=== PATIENT | male | born 1990 | race African-American/Black ===

== ENCOUNTER 2017-11-11 10:28 | Observation (INO) | payer SELFPAY ==
[2017-11-11] MEDS ORDERED: Morphine 2 MG/ML SYRINGE ONE (11:16)
--- NOTE | 2017-11-11 11:50 | RAD ---
LEFT ANKLE 3 VIEWS: Date: 11/11/17 HISTORY: Left ankle pain and deformity. FINDINGS: There is disruption of the ankle mortise with dislocation at the talocrural joint. There are fracture s involving the distal tibia and fibula. The talus is posteriorly dislocated in relation to the dista l tibia. IMPRESSION: Fracture-dislocation of the left ankle. POS: CADENCE
[2017-11-11] MEDS ORDERED: Morphine 4 MG/ML VIAL ONE (12:00)
[2017-11-11] MEDS ORDERED: CEFAZOLIN/Water 2 GM/20 ML SYRINGE SLOW IVP SCH (12:30)
[2017-11-11 13:08] LABS: #Basophils 0.1 thou/uL (0.0-0.2); #Eosinphils 0.1 thou/uL (0.0-0.7); #Monocytes 0.5 thou/uL (0.11-0.59); #Neutrophils 6.4 thou/uL (1.40-6.50); %Basophils 0.8 % (0.0-1.0); %Eosinophils 1.3 % (0.0-10.0); %Lymphocytes 12.7 % (21.0-51.0); %Monocytes 5.9 % (0.0-10.0); %Neutrophils 79.3 % (42.0-75.0); Hemoglobin 15.1 g/dL (14.0-18.0); Mean Corpuscular HGB CONC 32.4 g/dL (32.0-36.0); Mean Corpuscular Hemoglobin 27.2 pg (27.0-31.0); Mean Corpuscular Volume 83.9 fL (78.0-98.0); Platelet Count 111 thou/uL (130-400); RBC Distribution Width 11.9 % (11.5-14.5); Red Blood Cell (RBC) Count 5.56 mill/uL (4.70-6.10)
[2017-11-11 13:17] LABS: ALT (SGPT) 14 U/L (8-55); AST (SGOT) 15 U/L (5-34); Albumin 4.5 g/dL (3.5-5.0); Alkaline Phosphatase 75 U/L (40-150); Anion Gap 10 mmol/L (10-20); BUN (Urea Nitrogen) 10 mg/dL (8.9-20.6); Bilirubin, Total 0.6 mg/dL (0.2-1.2); Calc. Creatinine Clearance 0 mL/min (70-130); Calcium 9.8 mg/dL (7.8-10.44); Carbon Dioxide 26 mmol/L (22-29); Chloride 105 mmol/L (98-107); Estimated GFR-MDRD Greater than 90; Glucose 119 mg/dL (70-105); Potassium 3.9 mmol/L (3.5-5.1); Protein, Total 7.5 g/dL (6.0-8.3); Sodium 137 mmol/L (136-145)
[2017-11-11] MEDS ORDERED: Ondansetron HCl/PF 4 MG/2 ML Vial IVP PRN (13:21)
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
[2017-11-11] MEDS ORDERED: Acetaminophen 1,000 MG in Premix Bag 1 BAG IVPB PRN (13:23)
--- NOTE | 2017-11-11 13:41 | RAD ---
LEFT ANKLE THREE VIEWS: History: Deformity, fracture/dislocation reduction . FINDINGS/IMPRESSION: Interval reduction of the fracture-dislocation is seen since earlier exam of 10:45 a.m. from the same date. Anatomic alignment has been restored. A cast has been placed. POS: NEMESIO
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
[2017-11-11 16:20] VITALS: BMI 25.2
[2017-11-11] MEDS: Sodium Chloride 0.9% 1,000 ML IV SCH (17:57)
[2017-11-12] MEDS: Ketorolac Tromethamine 30 MG/ML VIAL IVP PRN ×2 (02:43→08:45)
[2017-11-12] MEDS: Sodium Chloride 0.9% 1,000 ML IV SCH ×4 (02:45→23:48)
[2017-11-12] MEDS ORDERED: Ropivacaine 0.5% HCl/PF (150 MG/30 ML VIAL) ONE (11:54)
[2017-11-12] MEDS ORDERED: Ropivacaine 0.2% HCl/PF (40 MG/20 ML VIAL) ONE (11:54)
[2017-11-12] MEDS ORDERED: Bupivacaine HCl 0.5%/Epinephrine 1:200,000/PF 30 ml Vial ONE (11:54)
[2017-11-12] MEDS ORDERED: Ketorolac Tromethamine 30 MG/ML VIAL ONE (13:38)
[2017-11-12] MEDS ORDERED: Lidocaine 1% PF 5 ML VIAL ONE (13:38)
[2017-11-12] MEDS ORDERED: Ondansetron HCl/PF 4 MG/2 ML Vial ONE (13:38)
[2017-11-12] MEDS ORDERED: PROPOFOL 200 MG/20 ML VIAL ONE (13:38)
[2017-11-12] MEDS ORDERED: CEFAZOLIN/Water 2 GM/20 ML SYRINGE ONE (14:01)
[2017-11-12] MEDS ORDERED: Midazolam HCl 2 mg/2 ml Vial ONE (14:06)
[2017-11-12] MEDS ORDERED: Fentanyl 100 MCG/2 ML VIAL ONE ×4 (14:06→16:08)
[2017-11-12] MEDS ORDERED: Dexamethasone 4 mg/ml Vial ONE (14:08)
[2017-11-12] MEDS ORDERED: Ropivacaine 0.2% 550 ML 550 ML NERVE BLCK SCH (14:42)
[2017-11-12] MEDS ORDERED: Zolpidem Tartrate 5 MG TAB PO PRN (14:42)
[2017-11-12] MEDS ORDERED: Ketorolac Tromethamine 30 MG/ML VIAL IVP PRN (14:42)
[2017-11-12] MEDS ORDERED: Ondansetron HCl/PF 4 MG/2 ML Vial IVP PRN ×2 (14:42→16:49)
[2017-11-12] MEDS ORDERED: Promethazine HCl 25 MG/ML VIAL IM PRN ×2 (14:42→16:49)
[2017-11-12] MEDS ORDERED: traMADol HCl 50 MG TAB PO PRN ×2 (14:42)
[2017-11-12] MEDS ORDERED: Fentanyl 100 MCG/2 ML VIAL IV PRN (14:43)
[2017-11-12] MEDS ORDERED: HYDROcodone/Acetaminophen 7.5/325 mg Tablet PO PRN ×2 (14:44)
[2017-11-12] MEDS ORDERED: Midazolam HCl 5 mg/5 ml Vial ONE (16:09)
[2017-11-12] MEDS ORDERED: Morphine Sulfate 2 MG/ML SYRINGE SLOW IVP PRN (16:49)
[2017-11-12] MEDS ORDERED: Meperidine HCl/PF 25 MG/ML VIAL SLOW IVP PRN (16:49)
[2017-11-12] MEDS ORDERED: Promethazine HCl 25 MG/ML VIAL SLOW IVP PRN (16:49)
[2017-11-12] MEDS ORDERED: HYDROmorphone 2 MG/ML VIAL SLOW IVP PRN (16:49)
--- NOTE | 2017-11-12 18:21 | RAD ---
LEFT ANKLE RADIOGRAPHS 3 VIEWS: DATE: 11/12/17. PROVIDED CLINICAL HISTORY: Fracture. FINDINGS: Spot fluoroscopic frontal and lateral images of the left ankle demonstrate interval lateral side plat e and screw fixation of the distal fibular fracture with resultant improved alignment. IMPRESSION: As above. POS: NEMESIO
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
[2017-11-13 03:49] VITALS: BP 132/80; TEMP 98.3
[2017-11-13] MEDS ORDERED: HYDROcodone/Acetaminophen 7.5/325 mg Tablet PO PRN (06:07)
[2017-11-13] MEDS ORDERED: Acetaminophen 500 MG TAB PO SCH (06:15)
[2017-11-13] MEDS ORDERED: traMADol HCl 50 MG TAB PO SCH (08:00)
[2017-11-13] MEDS ORDERED: Ibuprofen 800 MG TAB PO SCH (09:00)
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
== END 2017-11-13 06:48 | disposition home or self-care (01) ==
LOC: ERS 10:28 → SURG A 13:49
PROVIDERS: ADMIT Specialist; ATTEND Specialist
PROC: 0QSK04Z Reposition Left Fibula with Internal Fixation Device, Open Approach (ICD-10-PCS; principal; 2017-11-12)
DX: S82.62XA Displaced fracture of lateral malleolus of left fibula, initial encounter for closed fracture (principal); S93.05XA Dislocation of left ankle joint, initial encounter; S82.302A Unspecified fracture of lower end of left tibia, initial encounter for closed fracture; G89.11 Acute pain due to trauma; W18.42XA Slipping, tripping and stumbling without falling due to stepping into hole or opening, initial encounter
CPT/HCPCS: 27840; 36415; 76001; 80053; 85025; 90471; 90686; 96361; 96374; 96375; 96376; A4306; C1713; G0008; G0378; G0390; G8978-GP-CL; G8979-GP-CJ; J0131; J0670; J1100; J1885; J2001; J2250; J2270; J2405; J2704; J2795; J3010

== ENCOUNTER 2018-03-16 15:43 | Emergency (ER) | payer BC, SELFPAY ==
[2018-03-16] MEDS ORDERED: Ibuprofen 800 MG TAB ONE (16:24)
== END 2018-03-16 17:02 | disposition home or self-care (01) ==
LOC: ERS 15:43
DX: R50.9 Fever, unspecified (principal); Z87.891 Personal history of nicotine dependence
CPT/HCPCS: 87081; 87430; 87804; 99283

== ENCOUNTER 2021-01-03 21:42 | Emergency (ER) | payer BC, SELFPAY ==
[2021-01-03] MEDS ORDERED: Ondansetron ODT 4 MG TAB ONE (22:50)
[2021-01-03] MEDS ORDERED: Acetaminophen 500 MG TAB ONE (23:42)
== END 2021-01-03 23:45 | disposition home or self-care (01) ==
LOC: ERS 21:42
DX: S06.0X9A Concussion with loss of consciousness of unspecified duration, initial encounter (principal); Y04.0XXA Assault by unarmed brawl or fight, initial encounter; F17.210 Nicotine dependence, cigarettes, uncomplicated
CPT/HCPCS: 70450; Q0162

== ENCOUNTER 2021-04-03 07:44 | Emergency (ER) | payer SELFPAY ==
[2021-04-03] MEDS ORDERED: Ketorolac Tromethamine 30 MG/ML VIAL ONE (09:29)
== END 2021-04-03 09:58 | disposition home or self-care (01) ==
LOC: ERS 07:44
DX: S29.012A Strain of muscle and tendon of back wall of thorax, initial encounter (principal); X50.9XXA Other and unspecified overexertion or strenuous movements or postures, initial encounter; F17.210 Nicotine dependence, cigarettes, uncomplicated
CPT/HCPCS: 96372; 99283; J1885

== ENCOUNTER 2021-09-24 15:30 | Emergency (ER) | payer SELFPAY ==
[2021-09-24] MEDS ORDERED: Acetaminophen 500 MG TAB ONE (16:06)
[2021-09-24] MEDS ORDERED: Metoclopramide HCl 10 MG/2 ML VIAL ONE (16:06)
[2021-09-24] MEDS ORDERED: diphenhydrAMINE 50 MG/ML VIAL ONE (16:06)
[2021-09-24 16:55] LABS: ALT (SGPT) 30 U/L (8-55); AST (SGOT) 19 U/L (5-34); Albumin 4.1 g/dL (3.5-5.0); Alkaline Phosphatase 76 U/L (40-110); Anion Gap 16 mmol/L (10-20); BUN (Urea Nitrogen) 11 mg/dL (8.9-20.6); Bilirubin, Total 0.6 mg/dL (0.2-1.2); CK (CPK) 98 U/L (30-200); Calc. Creatinine Clearance 0 mL/min (70-130); Carbon Dioxide 24 mmol/L (22-29); Chloride 101 mmol/L (98-107); Estimated GFR 94; Globulin 2.9 g/dL (2.4-3.5); Glucose 118 mg/dL (70-105); Potassium 3.6 mmol/L (3.5-5.1); Sodium 137 mmol/L (136-145)
[2021-09-24 17:02] LABS: #Eosinphils 0.1 thou/uL (0.0-0.7); #Lymphocytes 0.8 thou/uL (1.20-3.40); #Monocytes 0.6 thou/uL (0.11-0.59); #Neutrophils 6.1 thou/uL (1.40-6.50); %Basophils 0.1 % (0.0-1.0); %Eosinophils 0.7 % (0.0-10.0); %Lymphocytes 10.8 % (21.0-51.0); %Monocytes 8.3 % (0.0-10.0); %Neutrophils 80.1 % (42.0-75.0); Hemoglobin 14.9 g/dL (14.0-18.0); Large Platelets SLIGHT; MDiff Complete? YES; Mean Corpuscular HGB CONC 34.5 g/dL (32.0-36.0); Mean Corpuscular Hemoglobin 29.1 pg (27.0-31.0); Mean Corpuscular Volume 84.2 fL (78.0-98.0); Mean Platelet Volume 11.2 fL (7.4-10.4); Platelet Count 91 thou/uL (130-400); Platelet Morphology Comment Appears Decreased; Polychromasia SLIGHT = 2-3 cells (100X) (0-2/hpf); RBC Distribution Width 11.6 % (11.5-14.5); Red Blood Cell (RBC) Count 5.12 mill/uL (4.70-6.10); White Blood Cell (WBC) Count 7.6 thou/uL (4.8-10.8)
[2021-09-24 18:10] LABS: SARS-CoV-2 NAA Rapid Test Not Detected (NotDetected)
== END 2021-09-24 18:34 | disposition home or self-care (01) ==
LOC: ERS 15:30
DX: R51.9 Headache, unspecified (principal); Z20.822 Contact with and (suspected) exposure to COVID-19; F17.210 Nicotine dependence, cigarettes, uncomplicated
CPT/HCPCS: 36415; 80053; 82550; 83605; 85025; 96374; 96375; J1200; J2765